=== PATIENT | male | born 1975 | race Caucasian/White ===

== ENCOUNTER 2017-05-15 14:21 | Emergency (ER) | payer OTHER ==
[2017-05-15 15:04] VITALS: BP 127/82
--- NOTE | 2017-05-15 15:29 | UC ---
Eye Complaint HPI - HPI Summary HPI Summary: ABOUT 1 WEEK OF RED, IRRITATED EYES. CRUSTED SHUT IN THE MORNINGS. IS JUST GETTING OVER A SINUS INFECTION. ALSO IS REQUESTING ADVAIR HFA REFILL. DOES WEAR CONTACTS. - History of Current Complaint Chief Complaint: UCEye Stated Complaint: EYE COMPLAINT Time Seen by Provider: 05/15/17 15:18 Hx Obtained From: Patient Onset/Duration: Gradual Onset, Lasting Days Timing: Constant Severity Initially: Moderate Severity Currently: Moderate Pain Intensity: 0 Pain Scale Used: 0-10 Numeric Location of Injury: Conjunctiva Aggravating Factor(s): Nothing Alleviating Factor(s): Nothing Associated Signs And Symptoms: Positive: Drainage (Clear). Negative: Vision Impairment Bilateral - Allergies/Home Medications Allergies/Adverse Reactions: Allergies Allergy/AdvReac Type Severity Reaction Status Date / Time No Known Allergies Allergy Verified 05/15/17 14:52 Home Medications: Home Medications Bupropion XL* [Wellbutrin XL *] 150 mg PO DAILY 05/15/17 [History Confirmed ] Omeprazole CAP* [Prilosec CAP* 20 MG] 20 mg PO BID 05/15/17 [History Confirmed 05/15/17] Pregabalin CAP(*) [Lyrica CAP(*)] 300 mg PO DAILY 05/15/17 [History Confirmed ] Tramadol HCl [Tramadol HCl ER] 150 mg PO 05/15/17 [History] Vivance 40 mg 05/15/17 [History] PMH/Surg Hx/FS Hx/Imm Hx - Additional Past Medical History Additional PMH: RESTLESS LEGS, ALLERGIES GI/ History: Gastroesophageal Reflux - Surgical History Surgical History: Yes Surgery Procedure, Year, and Place: heart ablation -2016 - Family History Known Family History: Negative: Hypertension - Social History Alcohol Use: None Substance Use Type: None Smoking Status (MU): Former Smoker Review of Systems Constitutional: Negative Eyes: Drainage, Eye Redness Respiratory: Negative Cardiovascular: Negative Gastrointestinal: Negative All Other Systems Reviewed And Are Negative: Yes Physical Exam Triage Information Reviewed: Yes Appearance: Well-Appearing, No Pain Distress, Well-Nourished Vital Signs: Initial Vital Signs Temp 99.3 F 05/15/17 14:56 Pulse 69 05/15/17 14:56 Resp 18 05/15/17 14:56 BP 127/82 05/15/17 14:56 Pulse Ox 98 05/15/17 14:56 Vital Signs Reviewed: Yes Eyes: Positive: Conjunctiva Inflamed, Discharge - CLEAR DRAINAGE BOTH EYES ENT: Positive: Hearing grossly normal Neck: Positive: Supple Respiratory: Positive: No respiratory distress, No accessory muscle use Cardiovascular: Positive: Pulses Normal Abdomen Description: Positive: Soft Musculoskeletal: Positive: No Edema Neurological: Positive: Alert Psychological: Positive: Age Appropriate Behavior Skin: Negative: rashes Eye Complaint Course/Dx - Differential Dx/Diagnosis Provider Diagnoses: BILATERAL CONJUNCTIVITIS Discharge - Discharge Plan Condition: Stable Disposition: HOME Prescriptions: Ciprofloxacin 0.3% OPTH.MINGO* [Cipro 0.3% Opth*] 1 drop BOTH EYES Q4H #1 btl Fluticas/Salmet 115/21 HFA(NF) [Advair HFA 115/21 (NF)] 2 puff INH BID #1 mdi Patient Education Materials: Conjunctivitis (ED) Referrals: Steve Navarro NP [Primary Care Provider] - If Needed Stanley Garnica MD [Medical Doctor] - If Needed Additional Instructions: CONTINUE TO TAKE YOUR DAILY ANTIHISTAMINE TO COVER FOR ANY ALLERGIC COMPONENT. DO NOT WEAR CONTACTS UNTIL YOUR SYMPTOMS ARE RESOLVED. FOLLOW-UP WITH YOUR EYE DOCTOR IF YOU ARE NOT IMPROVING WITH THE EYE DROPS. ADVAIR REFILLED TODAY. FOLLOW-UP PCP.
== END 2017-05-15 15:50 | disposition home or self-care (01) ==
LOC: UCEAST 14:21
DX: H10.9 Unspecified conjunctivitis (principal)
CPT/HCPCS: 99202; G0463